=== PATIENT | female | born 1960 | race Caucasian/White ===

== ENCOUNTER → 2017-04-10 | Outpatient (CLI) | payer BC ==
[~2017-04-10] MED LIST: LVT.1T PO
== END ==
LOC: RAD 09:52
PROVIDERS: ATTEND Family Medicine
DX: Z12.31 Encounter for screening mammogram for malignant neoplasm of breast (principal)
CPT/HCPCS: 77067

== ENCOUNTER → 2017-10-03 | Outpatient (CLI) | payer BC ==
--- NOTE | 2017-10-03 08:46 | Diagnostic Imaging Report ---
INDICATION: Hematuria. Axial imaging through the abdomen and pelvis was performed without contrast. No prior studies are available for comparison. FINDINGS: There is a tiny subpleural nodule in the lateral portion of the right lower lobe measuring 4 mm. Otherwise lung bases are clear. The liver is unremarkable. The pancreas is poorly visualized. No adrenal mass is identified. No renal calculi are detected. No hydronephrosis is detected. No definite ureteral calculi are seen. The bladder is decompressed. There are numerous calcifications in the pelvis suggestive of phleboliths. The bowel loops are normal caliber. There is no ascites. IMPRESSION: No evidence of urinary tract calculi or obstruction. Dictated by: Dictated on workstation # [id number]
== END ==
LOC: RAD 08:13
PROVIDERS: ATTEND Urology
DX: R31.9 Hematuria, unspecified (principal)
CPT/HCPCS: 74176

== ENCOUNTER → 2017-10-22 | Outpatient (CLI) | payer BC | LOC: CARD 14:01 | PROVIDERS: ATTEND Nurse Practitioner Family | DX: I25.10 Atherosclerotic heart disease of native coronary artery without angina pectoris (principal); R00.2 Palpitations; I34.1 Nonrheumatic mitral (valve) prolapse; E03.8 Other specified hypothyroidism | CPT/HCPCS: 93306 ==

== ENCOUNTER → 2019-01-19 | Outpatient (CLI) | payer BC ==
--- NOTE | 2019-01-19 09:15 | Diagnostic Imaging Report ---
INDICATION: Routine screening. Comparison is made with prior mammogram from 04/10/2017 and 08/16/2015. 2-D and 3-D bilateral screening mammography was performed with CAD. The current study was also evaluated with a Computer Aided Detection (CAD) system. 3-D tomosynthesis was also performed and reviewed. Scattered fibroglandular densities are identified bilaterally. The parenchymal pattern is stable. No mass or malignant appearing microcalcifications are seen. The axillae are unremarkable. IMPRESSION: No mammographic features suspicious for malignancy are identified. ACR BI-RADS Category 1: Negative. Result letter will be mailed to the patient. Note: At least 10% of breast cancer is not imaged by mammography. Dictated by: Dictated on workstation # [id number]
== END ==
LOC: RAD 07:36
PROVIDERS: ATTEND Family Medicine
DX: Z12.31 Encounter for screening mammogram for malignant neoplasm of breast (principal)
CPT/HCPCS: 77067

== ENCOUNTER → 2021-06-09 | Outpatient (CLI) | payer BC ==
--- NOTE | 2021-06-12 11:31 | Diagnostic Imaging Report ---
INDICATION: Routine screening. Comparison is made with prior mammogram 01/19/2019 and 04/10/2017. 2-D and 3-D bilateral screening mammography was performed with CAD. Scattered fibroglandular densities are identified bilaterally. The parenchymal pattern is stable. No mass or malignant-appearing microcalcifications are seen. Axillae are unremarkable. IMPRESSION: BI-RADS Category 1 No mammographic features suspicious for malignancy are identified. ACR BI-RADS Category 1: Negative. Result letter will be mailed to the patient. Note: At least 10% of breast cancer is not imaged by mammography. Dictated by: Dictated on workstation # [id number]
== END ==
LOC: RAD 07:39
PROVIDERS: ATTEND Family Medicine
DX: Z12.31 Encounter for screening mammogram for malignant neoplasm of breast (principal)
CPT/HCPCS: 77063; 77067

== ENCOUNTER → 2021-08-04 | Outpatient (CLI) | payer BC ==
--- NOTE | 2021-08-04 10:44 | Diagnostic Imaging Report ---
EXAMINATION: Right hip radiographs, 2 views. COMPARISON: None. HISTORY: 61-year-old female, right hip pain for 4 months. FINDINGS: There is mild to moderate joint space loss of the right hip. There is a lack of normal concavity at the right femoral head neck junction. There is no particularly prominent osteophyte formation. There is no identified subchondral cystic change. There is no identified acute fracture. There is no radiographically apparent bone lesion. There are pelvic calcifications likely reflecting phleboliths. IMPRESSION: 1. Lack of normal concavity of the right femoral head neck junction which is a morphologic feature which can be associated with cam-type femoral acetabular impingement which would be a clinical diagnosis. 2. Mild joint space loss of the right hip without osteophyte formation or subchondral cystic change. Dictated by: Dictated on workstation # [id number]
== END ==
LOC: RAD 08:23
PROVIDERS: ATTEND Family Medicine
DX: M25.851 Other specified joint disorders, right hip (principal)
CPT/HCPCS: 73502

== ENCOUNTER 2021-08-31 10:30 | Outpatient (RCR) | payer BC | END 2021-09-01 | disposition home or self-care (01) | PROVIDERS: ATTEND Family Medicine | DX: M25.551 Pain in right hip (principal) ==

== ENCOUNTER 2021-09-28 15:07 | Outpatient (RCR) | payer BC | END 2021-10-02 | disposition home or self-care (01) | PROVIDERS: ATTEND Family Medicine | DX: M25.551 Pain in right hip (principal) ==

== ENCOUNTER → 2022-04-02 | Outpatient (CLI) | payer BC ==
[~2022-04-02] MED LIST changes: +BARIUM for suspension 96% w/w (Vanilla Silq Medium Density) PO ONE; +BARIUM for suspension 98% w/w (Vanilla Silq High Density) PO ONE
--- NOTE | 2022-04-02 13:27 | Diagnostic Imaging Report ---
INDICATION: Dysphagia. Patient ingested effervescent crystals as well as thin and thick barium and imaging of esophagus, stomach and proximal small bowel was performed. Total of 62 seconds of fluoroscopic time was utilized. In addition, patient did ingest a barium tablet. Preliminary radiograph is unremarkable. The esophagus has a fairly smooth contour. No mass or stricture is identified. No gastroesophageal reflux was demonstrated. There is a very small sliding-type hiatal hernia. Stomach has normal configuration. No mass or ulceration was visualized. The duodenal bulb is without deformity. Visualized small bowel loops are localized to the right abdomen, suggestive of malrotation. IMPRESSION: 1. Small sliding-type hiatal hernia. 2. Small bowel malrotation. Dictated by: Dictated on workstation # [id number]
== END ==
LOC: RAD 11:00
PROVIDERS: ATTEND Family Medicine
DX: R13.10 Dysphagia, unspecified (principal)
CPT/HCPCS: 74246

== ENCOUNTER → 2022-08-28 | Outpatient (CLI) | payer BC ==
[~2022-08-28] VITALS: Ht 167.6 cm; Wt 75.0 kg
[~2022-08-28] MED LIST changes: -BARIUM for suspension 96% w/w (Vanilla Silq Medium Density) PO ONE; -BARIUM for suspension 98% w/w (Vanilla Silq High Density) PO ONE
== END ==
LOC: PREOP 09:27
PROVIDERS: ATTEND Surgery
DX: Z01.818 Encounter for other preprocedural examination (principal)

== ENCOUNTER 2022-09-04 07:10 | Day surgery (SDC) | payer BC ==
[~2022-09-04] VITALS: Ht 167.6 cm; Wt 75.0 kg
[2022-09-04] MEDS ORDERED: LACTATED RINGERS 1,000 ML IV STA (07:18)
[2022-09-04 07:33] VITALS: BP 137/78
[2022-09-04] MEDS ORDERED: PROPOFOL INJECTION 50 ML IV ONE (08:21)
--- NOTE | 2022-09-04 08:49 | Discharge Inst-Simple/Standard ---
Discharge Inst-Standard Patient Instructions/Follow Up Plan of Care/Instructions/FU: 10 years for repeat colonosocpy unless family history of personal hx of polyps which would be 5 years. Any issues be seen at that time. Activity as Tolerated: Yes Discharge Diet: Regular Diet ELÍAS SPEARS DO Sep 04, 2022 08:49
[2022-09-04 08:50] VITALS: BP 109/67
[2022-09-04 08:55] VITALS: BP 101/65
[2022-09-04 09:42] VITALS: BP 101/65
--- NOTE | 2022-09-04 17:42 | OPERATIVE REPORT ---
DATE OF SERVICE: 09/04/2022 PREOPERATIVE DIAGNOSIS: Screening colonoscopy. POSTOPERATIVE DIAGNOSIS: Normal colon. PROCEDURE: Colonoscopy. SURGEON: Dr. Doty. ANESTHESIA: Per TABLE GAMES SUPERVISOR. ESTIMATED BLOOD LOSS: None. COMPLICATIONS: None. INDICATIONS: The patient is a 62-year-old female, needing screening colonoscopy. She understands risks and benefits of the procedure and wishes to proceed. Consent was signed in chart. DESCRIPTION OF PROCEDURE: The patient was taken to endoscopy suite, placed in the left lateral recumbent position. Timeout was performed. Digital rectal exam was performed. No palpable polyps, masses or ulcerations. Scope was inserted in the rectum, advanced all the way to the cecum with minimal difficulty. Prep was adequate. Scope was slowly retracted back. No polyps, masses, or ulceration in the cecum, ascending, transverse, descending and sigmoid colon. Once in the rectum, scope was retroflexed noting no other pathology. Scope was returned to its normal position and slowly withdrawn until completely removed. The patient tolerated the procedure well without complication and was taken to recovery room in stable condition. RECOMMENDATIONS: The patient will need repeat colonoscopy in 10 years unless family history of colon cancer, which would be five years or personal history of polyps, which would then be five years. Any issues before that be seen at that time. CC: Dr. Anderson - requested but unable to deliver Job ID: [id number] DocumentID: [id number] Dictated Date: 09/04/2022 08:51:12 Casino Operations Supervisor Date: 09/04/2022 16:33:00 Dictated By: ELÍAS DOTY DO
== END 2022-09-04 09:50 | disposition home or self-care (01) ==
LOC: ENDO 07:10
PROVIDERS: ATTEND Surgery
DX: Z12.11 Encounter for screening for malignant neoplasm of colon (principal)

== ENCOUNTER → 2023-04-29 | Outpatient (CLI) | payer BC ==
--- NOTE | 2023-04-29 09:26 | Diagnostic Imaging Report ---
INDICATION: Routine screening. COMPARISON: 06/09/2021 and 01/19/2019. TECHNIQUE: 2D and 3D bilateral screening mammography was performed with CAD. FINDINGS: Scattered fibroglandular densities are identified bilaterally. The parenchymal pattern is stable. No mass or malignant-appearing microcalcifications are seen. The axillae are unremarkable. IMPRESSION: No mammographic features suspicious for malignancy are identified. ACR BI-RADS Category 1: Negative. Result letter will be mailed to the patient. Note: At least 10% of breast cancer is not imaged by mammography. Dictated by: Dictated on workstation # [id number]
== END ==
LOC: RAD 07:15
PROVIDERS: ATTEND Family Medicine
DX: Z12.31 Encounter for screening mammogram for malignant neoplasm of breast (principal)
CPT/HCPCS: 77063; 77067